=== PATIENT | female | born 1970 | race Hispanic/Latino ===

== ENCOUNTER → 2025-06-20 | Outpatient (RCR) | payer OTHER ==
[~2025-06-20] MED LIST: LIDOCAINE VISC 2% SOLN 15 ML UDC ONE; LIDOCAINE/PRILOCAINE 2.5-2.5% KIT ONE; MINERAL OIL/PETROLAT/GLYCERI 6OZ BTL ONE
== END ==
LOC: WCC 05-22 13:44
PROVIDERS: ATTEND Nurse Practitioner Family
DX: I87.311 Chronic venous hypertension (idiopathic) with ulcer of right lower extremity (principal); L97.812 Non-pressure chronic ulcer of other part of right lower leg with fat layer exposed; L03.115 Cellulitis of right lower limb; R60.0 Localized edema

== ENCOUNTER 2025-07-11 10:00 | Outpatient (RCR) | payer OTHER | END 2025-07-21 | LOC: WCC 10:00 | PROVIDERS: ATTEND Nurse Practitioner Family | DX: L03.115 Cellulitis of right lower limb (principal) ==

== ENCOUNTER 2025-08-15 14:00 | Outpatient (RCR) | payer OTHER | END 2025-08-20 | LOC: WCC 14:00 | PROVIDERS: ATTEND Internal Medicine Infectious Disease | DX: I87.311 Chronic venous hypertension (idiopathic) with ulcer of right lower extremity (principal); L97.812 Non-pressure chronic ulcer of other part of right lower leg with fat layer exposed; R60.0 Localized edema ==